=== PATIENT | male | born 1940 | race Native Hawaiian/Other Pacific Islander ===

== ENCOUNTER 2018-12-22 08:16 | Outpatient (CLI) | payer MEDICARE ==
[2018-12-22 11:10] LABS: Chol/HDL Ratio 3.05 %
[2018-12-26 13:27] LABS: Vitamin D, 25-OH, D2 <4 ng/mL
== END 2018-12-22 08:17 | disposition home or self-care (01) ==
LOC: LAB 08:16
PROVIDERS: ATTEND Internal Medicine
DX: E11.9 Type 2 diabetes mellitus without complications (principal); E55.9 Vitamin D deficiency, unspecified; E78.5 Hyperlipidemia, unspecified
CPT/HCPCS: 36415; 80061; 82306; 83036

== ENCOUNTER 2019-05-11 09:45 | Outpatient (CLI) | payer MEDICARE ==
[2019-05-11 11:14] LABS: Basophils # (Auto) 0.1 K/mm3 (0.0-0.1); Basophils % (Auto) 0.8 % (0.0-1.8); Eosinophils # (Auto) 0.2 K/mm3 (0.0-0.4); Eosinophils % (Auto) 3.4 % (0.0-4.3); Hematocrit 42.7 % (35.5-45.6); Hemoglobin 14.2 gm/dl (11.8-15.2); Lymphocytes # (Auto) 1.6 K/mm3 (1.2-5.4); Lymphocytes % (Auto) 22.6 % (13.4-35.0); Mean Corpuscular HGB Conc 33 % (32-34); Mean Corpuscular Volume 88 fl (84-94); Monocytes # (Auto) 0.7 K/mm3 (0.0-0.8); Monocytes % (Auto) 9.4 % (0.0-7.3); Platelet Count 237 K/mm3 (140-440); Red Blood Count 4.88 M/mm3 (3.65-5.03); Red Cell Distribution Width 15.1 % (13.2-15.2)
[2019-05-11 11:21] LABS: Alanine Aminotransferase 12 units/L (7-56); Albumin 4.5 g/dL (3.9-5); BUN/Creatinine Ratio 24; Blood Urea Nitrogen 19 mg/dL (9-20); Calcium 9.8 mg/dL (8.4-10.2); HDL Cholesterol 55 mg/dL (40-59); Hemolysis Index 2; LDL Cholesterol,Direct 139 mg/dL (50-130)
[2019-05-11 21:37] LABS: Creatinine,Urine 329.8 mg/dL (0.1-20.0); Microalbumin/Creatinine Ratio 28.5 ug/mg
[2019-05-13 13:31] LABS: Vitamin D, 25-OH, D2 <4 ng/mL
== END 2019-05-11 09:46 | disposition home or self-care (01) ==
LOC: LAB 09:45
PROVIDERS: ATTEND Internal Medicine
DX: Z13.29 Encounter for screening for other suspected endocrine disorder (principal); Z00.01 Encounter for general adult medical examination with abnormal findings; E11.9 Type 2 diabetes mellitus without complications; E78.5 Hyperlipidemia, unspecified; E55.9 Vitamin D deficiency, unspecified
CPT/HCPCS: 36415; 80053; 80061; 82043; 82306; 82607; 83036; 84443; 85025

== ENCOUNTER 2022-02-20 10:49 | Outpatient (CLI) | payer MEDICARE ==
[2022-02-20 13:24] LABS: Chol/HDL Ratio 2.3 %
== END 2022-02-20 10:50 | disposition home or self-care (01) ==
LOC: LABHHL 10:49
PROVIDERS: ATTEND Internal Medicine
DX: E78.5 Hyperlipidemia, unspecified (principal); E11.65 Type 2 diabetes mellitus with hyperglycemia
CPT/HCPCS: 36415; 80061; 83036